=== PATIENT | male | born 2000 | race Hispanic/Latino ===

== ENCOUNTER 2024-12-30 15:07 | Emergency (ER) | payer SELFPAY ==
[2024-12-30 15:14] VITALS: BP 128/78
--- NOTE | 2024-12-30 15:53 | ED.GENMED ---
History of Present Illness
General
Chief Complaint: Skin Problem
Source: patient and family
Exam Limitations: none
Time Seen by Provider: 12/30/24 15:46
Nursing documentation reviewed up to this point in time: agreed with
History of Present Illness
History of Present Illness:
Patient to ED requesting removal of left wrist hardware. He was involved in an accident in [facility] 2 months ago. ORIF performed, hardware placed. He was instructed to have hardware removed in 2 months. Came to ED for hardware removal.
Past History
Past History
ED Past Medical History: None
ED Past Surgical History: None
Social History
Tobacco: Non-smoker
Alcohol: None
Review of Systems
Review of Systems
Allergies reviewed?: Yes
All Other Systems: ROS reviewed and negative except as documented in HPI and ROS
Constitutional: Reports no symptoms
Musculoskeletal: Reports no symptoms
Skin: Reports other (Left wrist with exposed ends of pins (2 pins). NO redness/swelling/drainage)
Neurological: Reports no symptoms
Psychiatric: Reports no symptoms
Phy Exam
General Physical Exam
General Presentation: well appearing and no apparent distress
General age: appears stated age
General Skin: warm and dry
General Habitus: normal
General Mental: alert
Musculoskeletal Exam
Musculoskeletal Exam: full ROM and neuro vasc intact
Skin Exam
Skin Exam: normal color, warm/dry, no rash and other (Left wrist with 2 pins intact. No redness or swelling noted. Neurvasculary intact.)
Psychiatric Exam
Psychiatric Exam: normal mood/affect
Course
Orders/Labs/Results
Orders:
Orders
12/30/24 15:22
Wrist, Left 3 Views CR [CR Wrist - Left Min 3 Views] Urgent
Comment: in [facility]. pt wants the objects removed
Reason For Exam: two metal objects in wrist placed when he fx wrist
Vital Signs
Initial and Last Documented VS:
Initial Vital Signs
Temp Pulse Resp BP Pulse Ox
98.0 F 74 16 128/78 98
12/30/24 15:14 12/30/24 15:14 12/30/24 15:14 12/30/24 15:14 12/30/24 15:14
Last Documented Vital Signs
Temp Pulse Resp BP Pulse Ox
98.0 F 74 16 128/78 98
12/30/24 15:14 12/30/24 15:14 12/30/24 15:14 12/30/24 15:14 12/30/24 15:14
*Radiology
Radiology exam reviewed: radiology read reviewed
*Pulse Oximetry
Patient hypoxic: no
*Critical Care Note
Total Time (30-74mins, 75-104mins- exclusive of procedures): Not Applicable
Update Note
Update Note:
Patient notified that pins will need to be removed by orthopedics. Given number for follow up. No evidence of infection to pin site.
ED Attending Note
-
Portions of this chart may have been created with voice recognition software.� Occasional wrong word or��sound alike� substitutions may have occurred due to the inherent limitations of voice recognition software.
Discharge Plan
Departure
Patient Disposition: Home (Routine Discharge)
Date of Disposition: 12/30/24
Time of Disposition: 15:49
Patient with high blood pressure during this ER visit?: No
Condition: Good
Covid-19: Not Applicable
Discharge Problem:
Post-operative state
Instructions: General
Prescriptions:
No Action
acyclovir 800 mg tablet
See Rx Instructions .ROUTE .COMPLEX Qty: 35 0RF
Rx Instructions:
800 mg orally 5 times daily for 7 days
Referrals:
Ham Caal MD [Active] - Next open appointment
Activity Restrictions/Additional Instructions:
THe pins will need to be removed by the orthopedic surgeon. Call to schedule appointment.
Interventions
Interventions:
*Risk Screen - Suicide Last Done: 12/30/24 15:14
*General Assessment Last Done: 12/30/24 15:59
*Neglect/Abuse Screening Last Done: 12/30/24 15:14
*ED COVID-19 Vaccine History Last Done: 12/30/24 15:59
Discharge Date and Time
Print Language: COMORAN
== END 2024-12-30 16:09 | disposition home or self-care (01) ==
LOC: EMR 15:07
PROVIDERS: EMERGENCY PHYSICIAN Emergency Medicine
DX: S52.592D Other fractures of lower end of left radius, subsequent encounter for closed fracture with routine healing (principal); S52.615D Nondisplaced fracture of left ulna styloid process, subsequent encounter for closed fracture with routine healing; X58.XXXD Exposure to other specified factors, subsequent encounter; Z98.890 Other specified postprocedural states
CPT/HCPCS: 99283; 73110